=== PATIENT | female | born 1970 | race Caucasian/White ===

== ENCOUNTER 2018-01-31 05:48 | Day surgery (SDC) | payer OTHER ==
[~2018-01-31 05:48] MED LIST: AUGMENTIN ES-6200 ML PO; AVAPRO150 MG PO; MOTRIN800 MG PO; SYNTHROID50 MCG PO; TORADOL10 MG PO; ULTRACET; [UNRECOGNIZED DRUG - OTHER] PO
[2018-01-31] MEDS ORDERED: RECTICARE30 GM TOP (08:55)
[2018-01-31] MEDS ORDERED: PERCOCET 5-3251 EACH PO (08:55)
== END 2018-01-31 13:45 | disposition home or self-care (01) ==
LOC: CIR.AMB 05:48
DX: D12.8 Benign neoplasm of rectum (principal); K64.5 Perianal venous thrombosis